=== PATIENT | male | born 1990 | race Asian ===

== ENCOUNTER 2024-11-06 08:58 | Emergency (ER) | payer BC ==
[~2024-11-06] VITALS: Ht 172.7 cm; Wt 74.8 kg
[2024-11-06 09:02] VITALS: BP 148/95; PULSE 96; RESP 16; TEMP 98.3; O2SAT 97; O2SAT 99
[2024-11-06] MEDS ORDERED: PROM6.2527 MT (11:00)
[2024-11-06] MEDS ORDERED: AMOX1TAB16 MT (11:00)
== END 2024-11-06 11:13 | disposition home or self-care (01) ==
LOC: ER 08:58
DX: H66.92 Otitis media, unspecified, left ear (principal); J06.9 Acute upper respiratory infection, unspecified; J45.909 Unspecified asthma, uncomplicated
CPT/HCPCS: 99283

== ENCOUNTER 2025-06-22 12:37 | Emergency (ER) | payer BC ==
[~2025-06-22] VITALS: Ht 172.7 cm; Wt 87.0 kg
[~2025-06-22 12:37] MED LIST: AMOX1TAB16 MT; PROM6.2527 MT
[2025-06-22 12:50] VITALS: O2SAT 97
[2025-06-22 13:54] LABS: BASOPHILS % 0.8 % (0.0-2.0); EOSINOPHILS % 3.0 % (0.0-5.0); HEMATOCRIT. 45.3 % (42.0-52.0); HEMOGLOBIN. 15.4 g/dL (14.0-18.0); LYMPHOCYTES % 28.1 % (20.0-50.0); MEAN PLATELET VOLUME 9.0 fl (7.4-10.4); MONOCYTES % 11.4 % (2.0-8.0); NEUTROPHILS % 56.7 % (40.0-76.0); PLATELET 319 x1000/uL (130-400); RED BLOOD CELL COUNT 5.39 mill/uL (4.7-6.1); RED CELL DISTRIBUTION WIDTH 13.2 % (11.6-14.6)
[2025-06-22 14:02] LABS: CREATININE 0.9 mg/dL (0.6-1.3); UREA NITROGEN BLOOD 7 mg/dL (9-23)
[2025-06-22 14:03] LABS: TROPONIN I HIGH SENSITIVITY 13 ng/L (3.0-53)
[2025-06-22] MEDS ORDERED: HYDR10TA34 MT (14:17)
[2025-06-22 14:35] VITALS: BP 125/85; PULSE 92; RESP 18; TEMP 36.6; O2SAT 99
== END 2025-06-22 14:35 | disposition home or self-care (01) ==
LOC: ER 12:37
DX: R07.89 Other chest pain (principal); J45.909 Unspecified asthma, uncomplicated
CPT/HCPCS: 36415; 71045; 80048; 84484; 85025; 93005; 99285

== ENCOUNTER 2025-09-21 22:13 | Emergency (ER) | payer BC ==
[~2025-09-21] VITALS: Ht 172.7 cm; Wt 89.0 kg
[2025-09-21 22:15] VITALS: O2SAT 98
[2025-09-21] MEDS: DIPHENHYDRAMINE 25MG CAPSULE PO ONE (23:32)
[2025-09-21] MEDS: METOCLOPRAMIDE HCL 10MG TABLET PO ONE (23:32)
[2025-09-21] MEDS: ACETAMINOPHEN 500MG TABLET PO ONE (23:33)
[2025-09-22] MEDS ORDERED: NAPR-1176 MT (00:23)
[2025-09-22 00:54] VITALS: BP 126/79; PULSE 84; RESP 15; TEMP 36.4; O2SAT 96
== END 2025-09-22 00:56 | disposition home or self-care (01) ==
LOC: ER 22:13
DX: R51.9 Headache, unspecified (principal); I10 Essential (primary) hypertension; J45.909 Unspecified asthma, uncomplicated
CPT/HCPCS: 99284; 70450; Q0163; J8597